=== PATIENT | male | born 1980 | race Caucasian/White ===

== ENCOUNTER 2017-12-08 10:38 | Emergency (ER) | payer OTHER ==
[~2017-12-08] VITALS: Ht 180.3 cm; Wt 90.7 kg
[~2017-12-08 10:38] MED LIST: Bactrim Ds Tab1 EACH PO; CEPH500 PO; CYCL10 PO; DIPH25 PO; DOXY100 PO; ERYT.5TO RIGHTEYE; HYDACE5 PO; HYDR1TAB94 PO; HYDROCODONE; IBUP800 PO; METH10; METH10 PO; NAPR500ERA PO; NAPR550 PO; Norco 5-325 Ta1 EACH PO; OXYACE10; OXYACE5T PO; OXYACE7.5T; PROCODE120 PO; Prednisone20 MG PO; RXNAPNA550 PO; RXPROM25 PO; RXSULTRIDS PO; SULTRIDS PO; TAMS.4ER PO; TRAM50 PO
== END 2017-12-08 12:15 | disposition home or self-care (01) ==
LOC: ER 10:38
DX: S61.012A Laceration without foreign body of left thumb without damage to nail, initial encounter (principal); W25.XXXA Contact with sharp glass, initial encounter; F17.200 Nicotine dependence, unspecified, uncomplicated
CPT/HCPCS: 12001; 90471; 90714; 99283

== ENCOUNTER 2019-02-12 20:35 | Emergency (ER) | payer OTHER ==
[~2019-02-12] VITALS: Ht 180.3 cm; Wt 81.7 kg
== END 2019-02-12 23:31 | disposition home or self-care (01) ==
LOC: ER 20:35
DX: S01.01XA Laceration without foreign body of scalp, initial encounter (principal); S40.012A Contusion of left shoulder, initial encounter; S80.11XA Contusion of right lower leg, initial encounter; V89.2XXA Person injured in unspecified motor-vehicle accident, traffic, initial encounter; F17.200 Nicotine dependence, unspecified, uncomplicated
CPT/HCPCS: 12002; 36415; 70450; 71046; 73030; 73590; 90471; 90714; 96374-59; 96375-59; 99284-25; J2405; J3010

== ENCOUNTER 2019-02-19 15:15 | Emergency (ER) | payer OTHER ==
[~2019-02-19] VITALS: Ht 180.3 cm; Wt 90.7 kg
== END 2019-02-19 15:25 | disposition home or self-care (01) ==
LOC: ER 15:15
DX: S01.01XD Laceration without foreign body of scalp, subsequent encounter (principal); F17.210 Nicotine dependence, cigarettes, uncomplicated

== ENCOUNTER 2019-03-31 14:43 | Emergency (ER) | payer OTHER ==
[~2019-03-31] VITALS: Ht 180.3 cm; Wt 90.7 kg
[2019-03-31 15:34] LABS: Source, Urine Clean Catch
[2019-03-31 15:40] LABS: BASOPHILS ABSOLUTE AUTO 0.08 K/mm3 (0.00-0.23); BASOPHILS PERCENT AUTO 1 % (0-2); EOSINOPHILS ABSOLUTE AUTO 0.27 K/mm3 (0.00-0.68); EOSINOPHILS PERCENT AUTO 3 % (0-6); Hematocrit 51.5 % (37.0-53.0); Hemoglobin 17.7 g/dL (13.5-17.5); IMMATURE GRAN PERCENT AUTO 1 % (0-1); LYMPHOCYTES ABSOLUTE AUTO 2.89 K/mm3 (0.84-5.20); LYMPHOCYTES PERCENT AUTO 32 % (21-46); MONOCYTES ABSOLUTE AUTO 0.88 K/mm3 (0.16-1.47); MONOCYTES PERCENT AUTO 10 % (4-13); Mean Corpuscular HGB 31.6 pg (26.0-34.0); Mean Corpuscular HGB Conc 34.4 g/dL (31.5-36.5); Mean Corpuscular Volume 92 fL (80-100); Mean Platelet Volume 9.1 fL (9.1-12.4); NEUTROPHILS ABSOLUTE AUTO 4.82 K/mm3 (1.96-9.15); NEUTROPHILS PERCENT AUTO 53 % (41-73); Platelet Count 262 K/mm3 (150-400); RDW Coefficient Variation 13.3 % (11.7-14.2); RDW Standard Deviation 45.2 fL (35.1-46.3); Red Blood Cell Count 5.61 M/mm3 (4.30-5.90); White Blood Cell Count 9.04 K/mm3 (4.00-11.30)
[2019-03-31 15:43] LABS: Bilirubin, Urine Neg (Neg); Blood, Urine Neg (Neg); Glucose Qualitative, Urine Neg (Neg); Ketones, Urine Neg (Neg); Leukocyte Esterase, Urine Neg (Neg); Nitrite, Urine Neg (Neg); Protein, Urine Neg (Neg); Urobilinogen, Urine NORM (Normal)
[2019-03-31 15:56] LABS: Appearance, Urine Clear (Clear); Color, Urine Yellow (P-Yellow)
[2019-03-31 16:23] LABS: Alanine Aminotransfer (ALT/SGP 82 U/L (12-78); Albumin, Blood 4.1 g/dL (3.4-5.0); Albumin/Globulin Ratio 1.1 (0.8-1.8); Alk Phos 118 U/L (50-136); Anion Gap 5 mmol/L (6-16); Aspartate Aminotrans (AST/SGOT 46 U/L (12-37); Bilirubin, Total 0.5 mg/dL (0.1-1.0); Blood Urea Nitrogen 13 mg/dL (8-24); Bun/Creatinine Ratio 14.1 (12.0-20.0); CO2, Blood 26 mmol/L (21-32); Calcium, Blood 9.1 mg/dL (8.5-10.1); Chloride, Blood 104 mmol/L (98-108); Creatinine, Blood 0.92 mg/dL (0.60-1.20); Globulin, Blood 3.6 g/dL (2.2-4.0); Glomerular Filtration Rate >60 (60-); Glucose, Blood 93 mg/dL (70-99); Potassium, Blood 4.7 mmol/L (3.5-5.5); Sodium, Blood 135 mmol/L (136-145); Total Protein, Blood 7.7 g/dL (6.4-8.2)
[2019-03-31] MEDS ORDERED: CYCL10 PO (18:46)
[2019-03-31] MEDS ORDERED: LIDO700A20 TOP (18:46)
[2019-03-31] MEDS ORDERED: IBUP600 PO (18:46)
== END 2019-03-31 19:16 | disposition home or self-care (01) ==
LOC: ER 14:43
PROVIDERS: Physician Assistant
DX: M53.3 Sacrococcygeal disorders, not elsewhere classified (principal); F17.210 Nicotine dependence, cigarettes, uncomplicated
CPT/HCPCS: 36415; 80053; 81003; 85025; 96374; 96375; 99283-25; J1100; J1885

== ENCOUNTER 2019-09-07 02:40 | Emergency (ER) | payer OTHER ==
[~2019-09-07] VITALS: Ht 180.3 cm; Wt 86.2 kg
[~2019-09-07 02:40] MED LIST changes: +IBUP600 PO; +LIDO700A20 TOP
== END 2019-09-07 03:57 | disposition home or self-care (01) ==
LOC: ER 02:40
DX: K40.90 Unilateral inguinal hernia, without obstruction or gangrene, not specified as recurrent (principal); F17.210 Nicotine dependence, cigarettes, uncomplicated
CPT/HCPCS: 99283

== ENCOUNTER 2020-03-15 04:21 | Emergency (ER) | payer OTHER ==
[~2020-03-15] VITALS: Ht 180.3 cm; Wt 90.7 kg
[~2020-03-15 04:21] MED LIST changes: +ACET325 PO; +MECL12.5 PO; +Magic Bullet10 MG PR; +Magnesium Citr296 ML PO; +Prinivil5 MG PO
[2020-03-15 07:01] LABS: BASOPHILS ABSOLUTE AUTO 0.06 K/mm3 (0.00-0.23); BASOPHILS PERCENT AUTO 1 % (0-2); EOSINOPHILS ABSOLUTE AUTO 0.36 K/mm3 (0.00-0.68); EOSINOPHILS PERCENT AUTO 4 % (0-6); Hematocrit 44.6 % (37.0-53.0); Hemoglobin 15.1 g/dL (13.5-17.5); IMMATURE GRAN ABSOLUTE AUTO 0.06 K/mm3 (0.00-0.10); IMMATURE GRAN PERCENT AUTO 1 % (0-1); LYMPHOCYTES ABSOLUTE AUTO 3.13 K/mm3 (0.84-5.20); LYMPHOCYTES PERCENT AUTO 31 % (21-46); MONOCYTES ABSOLUTE AUTO 1.03 K/mm3 (0.16-1.47); MONOCYTES PERCENT AUTO 10 % (4-13); Mean Corpuscular HGB 30.3 pg (26.0-34.0); Mean Corpuscular HGB Conc 33.9 g/dL (31.5-36.5); Mean Corpuscular Volume 89 fL (80-100); Mean Platelet Volume 9.1 fL (9.1-12.4); NEUTROPHILS ABSOLUTE AUTO 5.43 K/mm3 (1.96-9.15); NEUTROPHILS PERCENT AUTO 54 % (41-73); Platelet Count 249 K/mm3 (150-400); RDW Standard Deviation 42.2 fL (35.1-46.3); Red Blood Cell Count 4.99 M/mm3 (4.30-5.90); White Blood Cell Count 10.07 K/mm3 (4.00-11.30)
[2020-03-15 07:16] LABS: Alanine Aminotransfer (ALT/SGP 72 U/L (12-78); Albumin, Blood 3.6 g/dL (3.4-5.0); Alk Phos 99 U/L (50-136); Anion Gap 6 mmol/L (6-16); Aspartate Aminotrans (AST/SGOT 34 U/L (12-37); Bilirubin, Total 0.4 mg/dL (0.1-1.0); Blood Urea Nitrogen 13 mg/dL (8-24); Bun/Creatinine Ratio 12.9 (12.0-20.0); CO2, Blood 28 mmol/L (21-32); Chloride, Blood 106 mmol/L (98-108); Creatinine, Blood 1.01 mg/dL (0.60-1.20); Globulin, Blood 3.5 g/dL (2.2-4.0); Glomerular Filtration Rate >60 (60-); Glucose, Blood 106 mg/dL (70-99); Sodium, Blood 140 mmol/L (136-145); Total Protein, Blood 7.1 g/dL (6.4-8.2)
[2020-03-15] MEDS ORDERED: Bactrim Ds Tab1 EACH PO (07:28)
[2020-03-15] MEDS ORDERED: CEPH500 PO (07:28)
== END 2020-03-15 07:43 | disposition home or self-care (01) ==
LOC: ER 04:21
PROVIDERS: Emergency Medicine
DX: L03.116 Cellulitis of left lower limb (principal); F17.210 Nicotine dependence, cigarettes, uncomplicated
CPT/HCPCS: 36415; 73630; 80053; 85025; 96374; 99283-25; A9270-GY; J1885

== ENCOUNTER 2020-12-18 23:15 | Emergency (ER) | payer OTHER ==
[~2020-12-18] VITALS: Ht 180.3 cm; Wt 98.9 kg
== END 2020-12-19 02:07 | disposition home or self-care (01) ==
LOC: ER 23:15
DX: R51.9 Headache, unspecified (principal); F17.210 Nicotine dependence, cigarettes, uncomplicated
CPT/HCPCS: 36415; 96374; 96375; 99283-25; J0780; J1100; J1200; J7030

== ENCOUNTER 2021-01-14 12:12 | Emergency (ER) | payer OTHER ==
[~2021-01-14] VITALS: Ht 180.3 cm; Wt 98.9 kg
[2021-01-14] MEDS ORDERED: IBUP600 PO (15:27)
== END 2021-01-14 15:34 | disposition home or self-care (01) ==
LOC: ER 12:12
DX: K40.91 Unilateral inguinal hernia, without obstruction or gangrene, recurrent (principal); I10 Essential (primary) hypertension; F17.210 Nicotine dependence, cigarettes, uncomplicated
CPT/HCPCS: 76857; 99284-25; A9270

== ENCOUNTER 2023-04-13 00:09 | Emergency (ER) | payer OTHER ==
[~2023-04-13] VITALS: Ht 180.3 cm; Wt 83.9 kg
[~2023-04-13 00:09] MED LIST changes: +DICY20 PO
[2023-04-13 01:15] VITALS: BP 167/113
== END 2023-04-13 01:37 | disposition home or self-care (01) ==
LOC: ER 00:09
DX: S01.82XA Laceration with foreign body of other part of head, initial encounter (principal); W22.8XXA Striking against or struck by other objects, initial encounter; I10 Essential (primary) hypertension; F17.210 Nicotine dependence, cigarettes, uncomplicated
CPT/HCPCS: 12011; 99282-25; A9270

== ENCOUNTER 2024-03-30 12:44 | Emergency (ER) | payer OTHER ==
[~2024-03-30] VITALS: Ht 180.3 cm; Wt 85.7 kg
[2024-03-30 14:14] LABS: BASOPHILS ABSOLUTE AUTO 0.06 K/mm3 (0.00-0.23); BASOPHILS PERCENT AUTO 1 % (0-2); EOSINOPHILS ABSOLUTE AUTO 0.23 K/mm3 (0.00-0.68); EOSINOPHILS PERCENT AUTO 2 % (0-6); Hematocrit 47.6 % (37.0-53.0); Hemoglobin 16.4 g/dL (13.5-17.5); IMMATURE GRAN ABSOLUTE AUTO 0.06 K/mm3 (0.00-0.10); IMMATURE GRAN PERCENT AUTO 1 % (0-1); LYMPHOCYTES ABSOLUTE AUTO 2.45 K/mm3 (0.84-5.20); LYMPHOCYTES PERCENT AUTO 25 % (21-46); MONOCYTES ABSOLUTE AUTO 0.79 K/mm3 (0.16-1.47); MONOCYTES PERCENT AUTO 8 % (4-13); Mean Corpuscular HGB 30.5 pg (26.0-34.0); Mean Corpuscular HGB Conc 34.5 g/dL (31.5-36.5); Mean Corpuscular Volume 89 fL (80-100); NEUTROPHILS ABSOLUTE AUTO 6.39 K/mm3 (1.96-9.15); NEUTROPHILS PERCENT AUTO 64 % (41-73); Platelet Count 230 K/mm3 (150-400); RDW Coefficient Variation 13.2 % (11.7-14.2); RDW Standard Deviation 42.9 fL (35.1-46.3); Red Blood Cell Count 5.38 M/mm3 (4.30-5.90); White Blood Cell Count 9.98 K/mm3 (4.00-11.30)
[2024-03-30 14:37] LABS: Albumin, Blood 3.5 g/dL (3.4-5.0); Bilirubin, Total 0.3 mg/dL (0.1-1.0); Bun/Creatinine Ratio 12.1 (12.0-20.0); Calcium, Blood 8.7 mg/dL (8.5-10.1); Creatinine, Blood 0.74 mg/dL (0.60-1.20); Globulin, Blood 3.4 g/dL (2.2-4.0); Potassium, Blood 4.2 mmol/L (3.5-5.5); Total Protein, Blood 6.9 g/dL (6.4-8.2)
[2024-03-30] MEDS ORDERED: Ketorolac Tromethamine 30mg Vial IV ONE (15:25)
[2024-03-30 16:46] VITALS: BP 168/122
== END 2024-03-30 16:55 | disposition home or self-care (01) ==
LOC: ER 12:44
PROVIDERS: Physician Assistant
DX: R00.2 Palpitations (principal); I10 Essential (primary) hypertension; F17.210 Nicotine dependence, cigarettes, uncomplicated
CPT/HCPCS: 71046; 80053; 84484; 85025; 85379; 93005; 93010; 93242; 96374; 99285-25; J1885

== ENCOUNTER 2025-02-05 07:09 | Day surgery (SDC) | payer OTHER ==
[~2025-02-05 07:09] MED LIST changes: +Bupivacaine 0.5% HCl 5 MG/ML 30MLVIAL ONE; +CeFAZolin Sodium 2,000 MG in NS 100 ML IV SCH; +FentaNYL Citrate 50 MCG/ML 2 ML Injection ONE; +FentaNYL Citrate 50 MCG/ML 5 ML Injection ONE
[2025-02-05 07:16] VITALS: BP 191/126
--- NOTE | 2025-02-05 07:31 | NUR ---
PT TO [facility] AT 0712 FOR 07 PROCEDURE. HYPERTENSION NOTED, ANESTHESIA INFORMED. ANESTHESIA AT BEDSIDE DISCUSSING RISKS OF HYPERTENSION WITH PT. PT COMPLETED PARTIAL SHAVE PREP ON ABD AT HOME. RASH ON LOWER ABD NOTED BEFORE SHAVE PREP IN PREOP. ANESTHESIA DISCUSSED CASE WITH SURGEON, CASE CANCELLED BY SURGEON AND ANESTHESIA DUE TO BP. PT UNDERSTANDING, KRISTEN CALLED FOR DC.
[2025-02-06] MEDS ORDERED: HYDCHL12.5 PO (13:25)
== END 2025-02-05 23:00 | disposition home or self-care (01) ==
LOC: ORSCMMR 07:09 → ORD 07:30 → ORSCMMR 07:30
DX: K40.20 Bilateral inguinal hernia, without obstruction or gangrene, not specified as recurrent (principal); K42.0 Umbilical hernia with obstruction, without gangrene; I10 Essential (primary) hypertension; Z53.9 Procedure and treatment not carried out, unspecified reason
CPT/HCPCS: J0690; J2704; J3010; J7120

== ENCOUNTER 2025-02-06 09:58 | Emergency (ER) | payer OTHER ==
[~2025-02-06] VITALS: Ht 180.3 cm; Wt 90.7 kg
[~2025-02-06 09:58] MED LIST changes: -Bupivacaine 0.5% HCl 5 MG/ML 30MLVIAL ONE; -CeFAZolin Sodium 2,000 MG in NS 100 ML IV SCH; -FentaNYL Citrate 50 MCG/ML 2 ML Injection ONE; -FentaNYL Citrate 50 MCG/ML 5 ML Injection ONE
[2025-02-06 10:46] LABS: BASOPHILS ABSOLUTE AUTO 0.07 K/mm3 (0.00-0.23); BASOPHILS PERCENT AUTO 1 % (0-2); EOSINOPHILS ABSOLUTE AUTO 0.25 K/mm3 (0.00-0.68); EOSINOPHILS PERCENT AUTO 3 % (0-6); Hematocrit 46.7 % (37.0-53.0); Hemoglobin 15.6 g/dL (13.5-17.5); IMMATURE GRAN ABSOLUTE AUTO 0.03 K/mm3 (0.00-0.10); IMMATURE GRAN PERCENT AUTO 0 % (0-1); LYMPHOCYTES ABSOLUTE AUTO 2.06 K/mm3 (0.84-5.20); LYMPHOCYTES PERCENT AUTO 23 % (21-46); MONOCYTES ABSOLUTE AUTO 0.57 K/mm3 (0.16-1.47); MONOCYTES PERCENT AUTO 6 % (4-13); Mean Corpuscular HGB Conc 33.4 g/dL (31.5-36.5); Mean Corpuscular Volume 88 fL (80-100); NEUTROPHILS ABSOLUTE AUTO 5.86 K/mm3 (1.96-9.15); NEUTROPHILS PERCENT AUTO 66 % (41-73); NRBC ABSOLUTE 0.00 K/mm3 (0.00-0.02); NRBC Auto 0.0 /100 WBC (0.0-0.2); Platelet Count 266 K/mm3 (150-400); RDW Coefficient Variation 13.3 % (11.7-14.2); RDW Standard Deviation 43.8 fL (35.1-46.3)
[2025-02-06 11:03] LABS: Alanine Aminotransfer (ALT/SGP 49.0 U/L (12-78); Albumin, Blood 3.4 g/dL (3.4-5.0); Albumin/Globulin Ratio 1.0 (0.8-1.8); Anion Gap 7.0 mmol/L (3-11); Aspartate Aminotrans (AST/SGOT 31.0 U/L (12-37); Bilirubin, Total 0.3 mg/dL (0.1-1.0); Blood Urea Nitrogen 10.0 mg/dL (8-24); CO2, Blood 26.0 mmol/L (21-32); Calcium, Blood 8.3 mg/dL (8.5-10.1); Chloride, Blood 110.0 mmol/L (98-108); Creatinine, Blood 0.86 mg/dL (0.60-1.20); Globulin, Blood 3.4 g/dL (2.2-4.0); Glucose, Blood 108.0 mg/dL (70-99); Potassium, Blood 3.9 mmol/L (3.5-5.5); Sodium, Blood 139.0 mmol/L (136-145); Total Protein, Blood 6.8 g/dL (6.4-8.2)
[2025-02-06] MEDS ORDERED: HYDCHL12.5 PO (13:25)
[2025-02-06 13:30] VITALS: BP 154/101
== END 2025-02-06 13:37 | disposition home or self-care (01) ==
LOC: ER 09:58
PROVIDERS: Emergency Medicine
DX: R07.89 Other chest pain (principal); I10 Essential (primary) hypertension; F17.210 Nicotine dependence, cigarettes, uncomplicated
CPT/HCPCS: 71045; 80053; 84484; 85025; 93005; 93010; 99285-25

== ENCOUNTER 2025-03-14 08:15 | Emergency (ER) | payer OTHER ==
[~2025-03-14] VITALS: Ht 180.3 cm; Wt 90.7 kg
[~2025-03-14 08:15] MED LIST changes: +HYDCHL12.5 PO
[2025-03-14 08:59] LABS: BASOPHILS ABSOLUTE AUTO 0.07 K/mm3 (0.00-0.23); BASOPHILS PERCENT AUTO 1 % (0-2); EOSINOPHILS ABSOLUTE AUTO 0.61 K/mm3 (0.00-0.68); EOSINOPHILS PERCENT AUTO 6 % (0-6); Hematocrit 45.8 % (37.0-53.0); Hemoglobin 15.6 g/dL (13.5-17.5); IMMATURE GRAN ABSOLUTE AUTO 0.05 K/mm3 (0.00-0.10); IMMATURE GRAN PERCENT AUTO 1 % (0-1); LYMPHOCYTES ABSOLUTE AUTO 2.57 K/mm3 (0.84-5.20); LYMPHOCYTES PERCENT AUTO 24 % (21-46); MONOCYTES ABSOLUTE AUTO 0.77 K/mm3 (0.16-1.47); MONOCYTES PERCENT AUTO 7 % (4-13); Mean Corpuscular HGB Conc 34.1 g/dL (31.5-36.5); Mean Corpuscular Volume 87 fL (80-100); NEUTROPHILS ABSOLUTE AUTO 6.81 K/mm3 (1.96-9.15); NEUTROPHILS PERCENT AUTO 63 % (41-73); NRBC ABSOLUTE 0.00 K/mm3 (0.00-0.02); NRBC Auto 0.0 /100 WBC (0.0-0.2); Platelet Count 283 K/mm3 (150-400); RDW Coefficient Variation 13.2 % (11.7-14.2); RDW Standard Deviation 41.4 fL (35.1-46.3)
[2025-03-14 09:11] LABS: Alanine Aminotransfer (ALT/SGP 47.0 U/L (12-78); Albumin, Blood 3.7 g/dL (3.4-5.0); Albumin/Globulin Ratio 1.1 (0.8-1.8); Anion Gap 8.0 mmol/L (3-11); Aspartate Aminotrans (AST/SGOT 32.0 U/L (12-37); Bilirubin, Total 0.2 mg/dL (0.1-1.0); Blood Urea Nitrogen 11.0 mg/dL (8-24); CO2, Blood 28.0 mmol/L (21-32); Calcium, Blood 8.6 mg/dL (8.5-10.1); Chloride, Blood 100.0 mmol/L (98-108); Creatinine, Blood 1.05 mg/dL (0.60-1.20); Globulin, Blood 3.5 g/dL (2.2-4.0); Glucose, Blood 106.0 mg/dL (70-99); Potassium, Blood 3.8 mmol/L (3.5-5.5); Sodium, Blood 132.0 mmol/L (136-145); Total Protein, Blood 7.2 g/dL (6.4-8.2)
[2025-03-14] MEDS ORDERED: Prinivil10 MG PO (11:59)
[2025-03-14 12:07] VITALS: BP 187/127
== END 2025-03-14 12:06 | disposition home or self-care (01) ==
LOC: ER 08:15
PROVIDERS: Emergency Medicine
DX: I10 Essential (primary) hypertension (principal); R42 Dizziness and giddiness
CPT/HCPCS: 70450; 71045; 80053; 83880; 84484; 85025; 93005; 93010; 99285-25; A9270

== ENCOUNTER 2025-05-14 03:28 | Inpatient (IN) | payer OTHER ==
[~2025-05-14] VITALS: Ht 182.9 cm; Wt 90.0 kg
[~2025-05-14 03:28] MED LIST changes: +Prinivil10 MG PO
[2025-05-14] MEDS ORDERED: Diltiazem HCl 5 MG / ML 5ML Vial IV ONE ×2 (03:40→04:05)
[2025-05-14] MEDS ORDERED: NS 1,000 ML IV SCH (03:40)
[2025-05-14 03:48] LABS: BASOPHILS ABSOLUTE AUTO 0.08 K/mm3 (0.00-0.23); BASOPHILS PERCENT AUTO 1 % (0-2); EOSINOPHILS ABSOLUTE AUTO 0.54 K/mm3 (0.00-0.68); EOSINOPHILS PERCENT AUTO 5 % (0-6); Hematocrit 48.9 % (37.0-53.0); Hemoglobin 16.4 g/dL (13.5-17.5); IMMATURE GRAN ABSOLUTE AUTO 0.04 K/mm3 (0.00-0.10); IMMATURE GRAN PERCENT AUTO 0 % (0-1); LYMPHOCYTES ABSOLUTE AUTO 3.15 K/mm3 (0.84-5.20); LYMPHOCYTES PERCENT AUTO 27 % (21-46); MONOCYTES ABSOLUTE AUTO 0.95 K/mm3 (0.16-1.47); MONOCYTES PERCENT AUTO 8 % (4-13); Mean Corpuscular HGB Conc 33.5 g/dL (31.5-36.5); Mean Corpuscular Volume 90 fL (80-100); NEUTROPHILS ABSOLUTE AUTO 6.82 K/mm3 (1.96-9.15); NEUTROPHILS PERCENT AUTO 59 % (41-73); NRBC ABSOLUTE 0.00 K/mm3 (0.00-0.02); NRBC Auto 0.0 /100 WBC (0.0-0.2); Platelet Count 279 K/mm3 (150-400); RDW Coefficient Variation 13.7 % (11.7-14.2); RDW Standard Deviation 45.1 fL (35.1-46.3)
[2025-05-14 04:15] LABS: Anion Gap 7.0 mmol/L (3-11); Blood Urea Nitrogen 14.0 mg/dL (8-24); CO2, Blood 30.0 mmol/L (21-32); Calcium, Blood 9.2 mg/dL (8.5-10.1); Chloride, Blood 104.0 mmol/L (98-108); Creatinine, Blood 1.04 mg/dL (0.60-1.20); Glucose, Blood 124.0 mg/dL (70-99); Magnesium, Blood 2.2 mg/dL (1.6-2.4); Potassium, Blood 3.9 mmol/L (3.5-5.5); Sodium, Blood 137.0 mmol/L (136-145); Thyroid Stimulating Hormone 2.67 uIU/mL (0.360-4.800)
[2025-05-14] MEDS ORDERED: Ondansetron HCl 2 MG / ML 2ML Vial IV PRN (05:15)
[2025-05-14] MEDS ORDERED: FLU VACC TS2025-26(6MOS UP)/PF 45 MCG/0.5 ML SYRINGE IM SCH (05:15)
[2025-05-14 08:46] LABS: U Amphetamine Screen Not Detected; U Barbiturate Screen Not Detected; U Benzodiazapine Screen Not Detected; U Buprenorphine Screen Not Detected; U Cannabinoids Screen Not Detected; U Cocaine Screen Not Detected; U Methadone Screen Not Detected; U Methamphetamine Screen DETECTED; U Opiates Screen Not Detected; U Oxycodone Screen Not Detected; U Phencyclidine Screen Not Detected
[2025-05-14] MEDS ORDERED: Enoxaparin 40 MG/0.4 ML SYR SC SCH (09:00)
--- NOTE | 2025-05-14 10:15 | NUR ---
ASSUMPTION OF CARE: REPORT FROM ILENE Valdez PT BROUGHT TO PCU 5 FROM ED AT APPROX 0858. PT ABLE TO STAND AND TRANSFER TO HOSPITAL BED. DILT GTT INFUSINGA AT 15ML/HR. REPORTING SLIGHT SOB AND CP THAT RADIATES DOWN L ARM. PT A&OX4. FOLLOWS COMMANDS AND ANSWERS QUESITONS APPROPRIATELY. TO CONCERTED TO SINUS AT 0905 AFTER COUGHING. PROVIDER AWARE. FINANCIAL ANALYSIS MANAGER AT BEDSIDE. DILT GTT INFUSING AT 5MG/HR PER PROVIDER ORDERS TO OBTAIN ECHO. PT DENIES ANY OTHER COMPLAINTS AT THIS TIME. CALL LIGHT IN REACH.
[2025-05-14 11:58] VITALS: BP 137/94
--- NOTE | 2025-05-14 13:25 | NUR ---
SHIFT SUMMARY/ DC NOTE: NO SIGNIFICANT EVENTS HAPPENED DURING THIS SHIFT. REMAINS FREE OF CP,PRESSURE, TIGHTNESS OR SOB. PT DISCHARGED TO HOME IN NO ACUTE STRESS AT THIS TIME. PT DENIES ANY QUESTIONS OR CONCERNS AT THIS TIME. PT WAS WHEELED OUT VIA WHEELCHAIR BY THIS RN.
[2025-05-14 15:24] VITALS: BP 133/83
--- NOTE | 2025-05-14 15:24 | NUR ---
ASSUMPTION OF CARE: THIS RN TOOK ASSUMPTION OF CARE AT APPROX 1520, REPORT RECIEVED FROM KIM MIDDLETON. PT A/O X4, ALL STRENGTH EQUAL BILATERALLY. INDEP IN ROOM. VITAL SIGNS STABLE, PLACED PT BACK ON TELE AFTER SHOWER. NSR 70s, DENIES CHEST PAIN/PRESSURE. OTHER VSS. ROOM AIR, SATS >97%, DENIES SOB. PT NPO AT 0000 FOR A 1-DAY STRESS TEST 05/15. PT LYING IN BED, CALL WITHIN REACH. DAUGHTER AT BEDSIDE. WILL REPORT TO ONCOMING RN.
[2025-05-14 20:45] VITALS: BP 152/103
[2025-05-14 23:33] VITALS: BP 145/101
[2025-05-15 03:53] VITALS: BP 176/124
[2025-05-15 04:25] LABS: BASOPHILS ABSOLUTE AUTO 0.06 K/mm3 (0.00-0.23); BASOPHILS PERCENT AUTO 1 % (0-2); EOSINOPHILS ABSOLUTE AUTO 0.53 K/mm3 (0.00-0.68); EOSINOPHILS PERCENT AUTO 6 % (0-6); Hematocrit 47.0 % (37.0-53.0); Hemoglobin 15.9 g/dL (13.5-17.5); IMMATURE GRAN ABSOLUTE AUTO 0.03 K/mm3 (0.00-0.10); IMMATURE GRAN PERCENT AUTO 0 % (0-1); LYMPHOCYTES ABSOLUTE AUTO 3.60 K/mm3 (0.84-5.20); LYMPHOCYTES PERCENT AUTO 39 % (21-46); MONOCYTES ABSOLUTE AUTO 0.89 K/mm3 (0.16-1.47); MONOCYTES PERCENT AUTO 10 % (4-13); Mean Corpuscular HGB Conc 33.8 g/dL (31.5-36.5); Mean Corpuscular Volume 89 fL (80-100); NEUTROPHILS ABSOLUTE AUTO 4.08 K/mm3 (1.96-9.15); NEUTROPHILS PERCENT AUTO 44 % (41-73); NRBC ABSOLUTE 0.00 K/mm3 (0.00-0.02); NRBC Auto 0.0 /100 WBC (0.0-0.2); Platelet Count 252 K/mm3 (150-400); RDW Coefficient Variation 13.8 % (11.7-14.2); RDW Standard Deviation 44.5 fL (35.1-46.3)
[2025-05-15 04:51] LABS: Anion Gap 9.0 mmol/L (3-11); Blood Urea Nitrogen 14.0 mg/dL (8-24); CO2, Blood 28.0 mmol/L (21-32); Calcium, Blood 9.0 mg/dL (8.5-10.1); Chloride, Blood 106.0 mmol/L (98-108); Creatinine, Blood 0.98 mg/dL (0.60-1.20); Glucose, Blood 113.0 mg/dL (70-99); Potassium, Blood 3.7 mmol/L (3.5-5.5); Sodium, Blood 139.0 mmol/L (136-145)
--- NOTE | 2025-05-15 05:14 | NUR ---
SHIFT SUMMARY PT IS A&O X4, ABLE TO MAKE NEEDS KNOWN, CALLS APPROPRIATELY. VSS, AFEBRILE, SPO2 >95% ON RA. PT WITH HTN WITH SBP 170S THIS AM. PER MD CONTINUE TO MONITOR, NO NEW ORDERS AT THIS TIME. PT HAD NO COMPLAINT OF CP OR SOB. TELE SHOWS SR 60S-80S. HE HAS BEEN NPO SINCE MIDNIGHT FOR PLANNED STRESS TEST TODAY 05/15. BED IN LOWEST POSITION, CALL LIGHT IN REACH, BREATHING IS EVEN AND UNLABORED.
[2025-05-15 07:54] VITALS: BP 164/117
--- NOTE | 2025-05-15 07:55 | NUR ---
CARDIOLYTE injection done by Sam Glisten tech at this time. Pt is now eating his breakfast. Blood pressure noted high, 164/117 (130) otherwise V/S are WNL.
--- NOTE | 2025-05-15 07:56 | NUR ---
Pt denies chest pain overnight, states no symptoms this morning. Sinus rhythm 90 bpm noted by telemetry monitoring at bedside.
--- NOTE | 2025-05-15 09:38 | NUR ---
Pt given scheduled medications. Sitting up in bed, with visitor at his side. No c/o symptoms at this time. Normal sinus rhtyhm per monitor, 80 bpm. NPO except for water for second portion of the stress test this afternoon.
--- NOTE | 2025-05-15 09:40 | NUR ---
Dr Wakefield here to see the patient.
[2025-05-15 12:26] VITALS: BP 173/132
[2025-05-15] MEDS ORDERED: HydrALAZINE HCl 20 MG / ML 1ML Vial IV ONE (14:35)
[2025-05-15] MEDS ORDERED: HydrALAZINE HCl 20 MG / ML 1ML Vial IV PRN (14:35)
[2025-05-15 15:38] VITALS: BP 155/98
[2025-05-15] MEDS ORDERED: Carvedilol12.5 MG PO (16:31)
[2025-05-15] MEDS ORDERED: ASPI81CH PO (16:31)
[2025-05-15] MEDS ORDERED: LOSARTAN-HCTZ1 EACH PO (16:34)
[2025-05-15] MEDS ORDERED: JARDIANCE10 MG PO (17:54)
[2025-05-15 18:05] VITALS: BP 170/121
--- NOTE | 2025-05-15 18:42 | NUR ---
SHIFT SUMMARY PATIENT A&O X4 T/O SHIFT. O2 SATS >98% ON ROOM AIR. HR 70-100 SR. SBP 160-170. PROVIDER NOTIFIED. MEDICATED PER EMAR. AMBULATES INDEPENDENTLY IN ROOM. STRESS TEST COMPLETED TODAY. NOTIFIED PROVIDER OF SYSTOLIC BP >170, MEDICATED PER EMAR. NOTIFIED PROVIDER APPROX 1 LATER, SBP STILL > 170. NEW ORDERS PLACED BY PROVIDER, MEDICATED PER EMAR. RECHECKED SBP AFTER INTERVENTION, AND SBP DECREASED TO 150'S. CONTINUED CLOSE BP MONITORING. DISCHARGED BY PROVIDER AROUND 1800. REVIEWED DISCHARGE INSTRUCTIONS, MEDICATION INSTRUCTIONS AND EDUCATED HOW TO TRACK BLOOD PRESSURE. INCLUDED BLOOD PRESSURE TRACKING FORM. PATIENT AGREED. BOTH IV'S REMOVED AND VITALS SIGNS WERE PUT IN CHART.
== END 2025-05-15 18:25 | disposition home or self-care (01) | DRG 282 ==
LOC: ER 03:28 → ERHOLD 05:14 → PCU 09:03
PROVIDERS: Emergency Medicine; Internal Medicine; ADMIT Student in an Organized Health Care Education/Training Program
DX: I48.92 Unspecified atrial flutter (principal); I21.A1 Myocardial infarction type 2; I10 Essential (primary) hypertension; R93.1 Abnormal findings on diagnostic imaging of heart and coronary circulation; F17.210 Nicotine dependence, cigarettes, uncomplicated
CPT/HCPCS: 36415; 71045; 78452; 80048; 83735; 84439; 84443; 84484; 85025; 85379; 93005; 93010; 93017; 93306; 96374; 96376; 99285-25; A9270; A9500; J0360; J0706; J1650; J2785; J7030; J7120